=== PATIENT | male | born 1960 | race Caucasian/White ===

== ENCOUNTER → 2017-11-19 | Outpatient (CLI) | payer MEDICAID ==
[~2017-11-19] MED LIST: AMLO5TAB2 PO; ASPI325T17 PO; ATOR-2 PO; FENO160T PO; FURO40TA6 PO; HYDR25TA6 PO; HYDR500C3 PO; IPRA4AER INH; LISI-170 PO; LISI40TA PO; METF850T2 PO; METO50TA82 PO; POTA20TA14 PO; RANI150C PO
== END | disposition home or self-care (01) ==
LOC: CFH 10:31
PROVIDERS: ATTEND Nurse Practitioner
DX: Z12.2 Encounter for screening for malignant neoplasm of respiratory organs (principal); I25.10 Atherosclerotic heart disease of native coronary artery without angina pectoris; K80.20 Calculus of gallbladder without cholecystitis without obstruction; F17.210 Nicotine dependence, cigarettes, uncomplicated; Z88.0 Allergy status to penicillin
CPT/HCPCS: G0297